=== PATIENT | male | born 1980 | race Caucasian/White ===

== ENCOUNTER 2017-02-28 21:45 | Emergency (ER) | payer OTHER ==
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
[2017-02-28 22:31] LABS: BASOPHIL % 0.3 % (0.0-0.4); Eosinophil % 2.2 % (0.00-5.0); Granulocytes % 57.5 % (36.0-66.0); Lymphocytes % 30.7 % (24.0-44.0); Mean Cell Volume 87.8 fl (78-100); Mean Corpuscular Hemoglobin 29.9 pg (26-32); Monocytes % 9.3 % (0.0-12.0); Platelet Count 186 K/mm3 (150-450); Red Blood Count 5.32 M/mm3 (4.1-5.6); White Blood Count 7.6 K/mm3 (4.0-10.5)
[2017-02-28 22:51] LABS: ANION GAP 11.2 MEQ/L (5-15); BLOOD UREA NITROGEN 10 mg/dL (9-20); CHLORIDE 106 mEq/L (98-107); Carbon Dioxide 26.8 mEq/L (21-32); Glucose 105 MG/DL (70-110); Potassium 4.3 mEq/L (3.5-5.1); SODIUM 140 mEq/L (136-145)
[2017-03-01 01:32] VITALS: BP 131/72; PULSE 86; O2SAT 99
--- NOTE | 2017-03-01 09:36 | XRAY ---
Indication: Headache. Multiple contiguous axial images obtained through the head without contrast. Comparison: July 23, 2012. Stable small left frontal lobe encephalomalacia near the vertex either from old infarct or injury. Again acute intracranial hemorrhage, abnormal extraction fluid collection, or mass effect. Stable moderate/significant mucosal thickening of the paranasal sinuses bilaterally with some fluid leveling. Stable opacification of inferior right mastoid air cells. Impression: 1. 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 2. No new/acute intracranial abnormalities. 3. Stable pansinusitis. Comment: Preliminary interpretation was made by [facility]. No discrepancy. CTDI 49.41
--- NOTE | 2017-03-01 09:44 | XRAY ---
Indication: Headache and sinus problems. Head injury one week ago. Multiple contiguous axial images obtained through the facial bones. Sagittal and coronal reformatted images obtained. Comparison: None. There is a CT orbits dated February 19, 2017. Multiple bilateral dental amalgams produces beam artifact. There is old right paramedian mandible fracture. Floor of the right orbit demonstrates bony defect without extraocular muscle entrapment, similar in appearance to the CT orbit exam. No acute fracture, suspicious bony lesions, or radiopaque foreign body. There is moderate/significant mucosal thickening with fluid leveling of the visualized paranasal sinuses with sparing of the frontal sinuses. Left maxillary sinus demonstrates subsuming or polyp/retention cyst. Previous left maxillary antrectomy. Mild nasal septal deviation to the left. Remaining visualized noncontrasted soft tissues unremarkable. CT head reported separately. Impression: 1. Right orbit floor bony defect presumed old injury. 2. Old mandible fracture. 3. Pansinusitis and left maxillary sinus polyp/retention cyst. Paranasal sinus disease similar in appearance to CT orbit February 19, 2017. Comment: Preliminary interpretation was made by [facility]. No critical discrepancy. CTDI 59.47
--- NOTE | 2017-03-01 09:48 | XRAY ---
Indication: Head injury one week ago. Headache. Multiple contiguous axial images obtained through the cervical spine. Sagittal and coronal reformatted images obtained. Comparison: January 21, 2013. Axial images again negative for acute fracture or spinal canal stenosis. Stable C2 body bone cyst. No new bony lesions. Sagittal and coronal reformatted images again demonstrates lordotic straightening, positional versus paraspinal muscular spasm. Disc spaces maintained. No acute compression fracture, subluxation, or jumped facet. Normal-appearing craniocervical junction. Visualized noncontrasted soft tissues including lung apices are unremarkable. CT head and CT facial bones reported separately. Impression: 1. Again negative for acute fracture/subluxation. Stable lordotic straightening, positional versus paraspinal spasm. 2. Stable C2 bone cyst. Comment: Preliminary interpretation was made by [facility]. No discrepancy. CTDI 108.83
== END 2017-03-01 01:32 | disposition home or self-care (01) ==
LOC: ED 21:45
DX: S00.93XA Contusion of unspecified part of head, initial encounter (principal); J32.9 Chronic sinusitis, unspecified; R51 Headache; M54.2 Cervicalgia; W22.8XXA Striking against or struck by other objects, initial encounter
CPT/HCPCS: 36415; 70450; 70486; 72125; 80048; 85025; 99284

== ENCOUNTER 2017-10-14 21:38 | Emergency (ER) | payer OTHER ==
[2017-10-14] MEDS ORDERED: Phenergan 25 MG INJ IV ONE (22:19)
[2017-10-14] MEDS ORDERED: SUBLIMAZE 100 MCG/2 ML IV ONE (22:19)
[2017-10-14 22:24] LABS: Appearance CLOUDY (CLEAR); Bilirubin NEGATIVE (NEGATIVE); Blood NEGATIVE Ery/ul (0-5); Glucose NEGATIVE (NEGATIVE); Ketones NEGATIVE (NEGATIVE); Leukocyte Esterase NEGATIVE (NEGATIVE); Nitrite NEGATIVE (NEGATIVE); Protein,Urine Dip NEGATIVE (Negative); Specific Gravity 1.015 (1.005-1.025); Urobilinogen NORMAL mg/dL (0-1)
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
[2017-10-14] MEDS ORDERED: Sodium Chloride 0.9% 1000 ML 1,000 ML IV SCH (22:30)
[2017-10-14 22:49] LABS: BASOPHIL % 0.5 % (0.0-0.4); Basophil (Absolute #) 0.03 (0-0.4); Eosinophil % 2.5 % (0.00-5.0); Eosinophil (Absolute #) 0.14 (0-0.5); Granulocyte Absolute (ANC) 2.76 (1.4-6.9); Granulocytes % 49.7 % (36.0-66.0); Hematocrit 47.9 % (42-50); Hemoglobin 16.1 gm/dl (12.5-18.0); Lymphocyte (Absolute #) 1.95 (1.0-4.6); Lymphocytes % 35.1 % (24.0-44.0); Mean Cell Volume 86.2 fl (78-100); Mean Corpuscular Hgb Concent. 33.6 g/dl (32-36); Monocyte (Absolute #) 0.68 (0.0-1.3); Monocytes % 12.2 % (0.0-12.0); Platelet Count 200 K/mm3 (150-450); Red Blood Count 5.56 M/mm3 (4.1-5.6); Red Cell Distribution Width 13.1 % (11.5-14.0); White Blood Count 5.6 K/mm3 (4.0-10.5)
[2017-10-14] MEDS ORDERED: Sodium Chloride 0.9% 1000 ML 1,000 ML ONE (22:57)
[2017-10-14 23:12] LABS: ALKALINE PHOSPHATASE 62 U/L (46-116); AMYLASE 56 U/L (25-115); ANION GAP 11.7 MEQ/L (5-15); BLOOD UREA NITROGEN 16 mg/dL (9-20); CHLORIDE 105 mEq/L (98-107); Calcium 9.2 mg/dL (8.5-10.1); Carbon Dioxide 30.2 mEq/L (21-32); Creatinine 1 1.16 mg/dl (0.55-1.30); EST GLOMERULAR FILTRATION RATE > 60 ML/MIN; Glucose 97 MG/DL (70-110); LIPASE 154 U/L (73-393); Potassium 5.2 mEq/L (3.5-5.1); SGOT/AST 31 U/L (15-37); SGPT/ALT 70 U/L (12-78); SODIUM 142 mEq/L (136-145); Total Protein 7.6 gm/dL (6.4-8.2)
[2017-10-14] MEDS ORDERED: Sodium Chloride 0.9% 1000 ML 1,000 ML IV STA (23:52)
[2017-10-15 02:26] VITALS: PULSE 75
[2017-10-15 02:27] VITALS: BP 138/84; O2SAT 98
--- NOTE | 2017-10-15 09:24 | XRAY ---
Indication: Left upper quadrant /epigastric pain. Multiple contiguous axial images obtained through the abdomen and pelvis without contrast as ordered. Comparison: None. Lung bases demonstrates minimal bibasilar dependent atelectasis and right base calcified granuloma. Heart is not enlarged. Noncontrasted stomach and bowel loops appear nonobstructed. Normal appendix. Minimal scattered colonic diverticulosis without diverticulitis. No free fluid/air. Diffuse fatty liver. Previous cholecystectomy. Spleen is enlarged measuring 13.4 cm in greatest axial dimension. There are scattered centimeter/subcentimeter mesenteric nodes possibly adenitis. Remaining liver, pancreas, spleen, adrenal glands, kidneys, ureters, bladder, and aorta appear unremarkable for noncontrast exam. Tiny fatty umbilical hernia. Osseous structures intact with partially visualized right femur intramedullary hardware. Impression: 1. Scattered small mesenteric nodes favoring mesenteric adenitis. 2. Incidental fatty liver, splenomegaly, colonic diverticulosis, and tiny fatty umbilical hernia. Comment: Preliminary interpretation was made by [facility]. No critical discrepancy. CT DI 23.35
[2017-10-16 05:42] LABS: Prostate Specific Antigen 0.54 ng/mL (<=2.50)
== END 2017-10-15 01:35 | disposition home or self-care (01) ==
LOC: ED 21:38
DX: R10.12 Left upper quadrant pain (principal); R51 Headache; R10.2 Pelvic and perineal pain; R39.15 Urgency of urination; K76.0 Fatty (change of) liver, not elsewhere classified; R16.1 Splenomegaly, not elsewhere classified; K57.90 Diverticulosis of intestine, part unspecified, without perforation or abscess without bleeding
CPT/HCPCS: 36000; 36415; 74176; 80053; 81002; 82150; 83690; 83735; 84153; 84154; 85025; 96360; 99284; 99285

== ENCOUNTER 2017-11-04 06:01 | Day surgery (SDC) | payer OTHER ==
[~2017-11-04 06:01] MED LIST: Lactated Ringers 1,000 ML IV SCH
[2017-11-04] MEDS ORDERED: DIPRIVAN 200 MG/20 ML IV ONE (06:02)
[2017-11-04] MEDS ORDERED: Ketamine HCl 50 MG/ML IJ ONE (06:02)
[2017-11-04] MEDS ORDERED: Lactated Ringers 1,000 ML IV ONE (06:57)
[2017-11-04 09:25] VITALS: BP 136/87; PULSE 18; O2SAT 96
--- NOTE | 2017-11-04 14:07 | OP ---
SURGERY DATE/TIME: 11/04/2017 0705 PREOPERATIVE DIAGNOSIS: Abdominal pain and diarrhea. POSTOPERATIVE DIAGNOSIS: Normal colon. PROCEDURE: Colonoscopy. SURGEON: Dr. Fallon. ANESTHESIA: MAC. Medications given by anesthesia department. HISTORY: The patient is a 37 year-old white male patient presenting now for complaints of abdominal pain and chronic diarrhea. The patient was felt the need to have endoscopic evaluation. He was appraised of the risks of the procedure including the risk of perforation, phlebitis, untoward reaction to medication, bleeding and missed lesions. The patient verbalized his understanding and desired to have the procedure performed. DESCRIPTION OF PROCEDURE: The patient was given the medications by the anesthesia department. He had continuous pulse oximetry, ECG monitoring, intermittent blood pressure monitoring and tidal CO2 monitoring during the examination. He was placed in the left lateral decubitus position. A digital rectal examination was performed and revealed normal anal sphincter tone and no masses and normal prostate. The flexible Olympus pediatric colonoscope was used to intubate the rectum. A view of the colon was developed sequentially to the cecum including a short distance into the terminal ileum. Upon insertion and withdrawal, including a retroflex view in the rectum, no mucosal lesions were encountered. The scope was removed from the patient who tolerated the procedure well and was sent back to OP recovery in good condition. The prep was noted to be fair to good.
== END 2017-11-04 08:40 | disposition home or self-care (01) ==
LOC: SDC 06:01
PROVIDERS: ATTEND Family Medicine
PROC: 0DJD8ZZ Inspection of Lower Intestinal Tract, Via Natural or Artificial Opening Endoscopic (ICD-10-PCS; principal; 2017-11-04)
DX: R10.9 Unspecified abdominal pain (principal); R19.7 Diarrhea, unspecified
CPT/HCPCS: 00812; J2704